=== PATIENT | female | born 1980 | race African-American/Black ===

== ENCOUNTER 2025-02-01 10:02 | Emergency (ER) | payer SELFPAY ==
--- NOTE | ~2025-02-01 | CT_ITS ---
CT HEAD NON-CONTRAST Clinical History: dizziness, headache, vertigo Comparison: None Technique: Unenhanced axial images skull base to vertex Coronal, sagittal reformats CT images acquired with automatic exposure control for dose reduction DLP: 605 mGy-cm Findings: Sulci, ventricles: Unremarkable. No intracerebral hemorrhage. No evidence acute territorial infarct. No mass effect, midline shift. Empty sella. Bony calvarium intact. Visualized paranasal sinuses: Clear. Mastoid air cells: Clear. IMPRESSION: 1. No acute intracranial findings. 2. 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 Reviewed, dictated and finalized at location [facility]. [employer] IMPRESSION: 1. No acute intracranial findings. 2. Empty pituitary fossa, usually caused by idiopathic intracranial hypertensi on.
[2025-02-01 10:04] VITALS: BP 113/84; PULSE 81; RESP 19; TEMP 36.6; O2SAT 98
--- NOTE | 2025-02-01 10:32 | ECG_ITS ---
Test Date: 2025-02-01 10:45:17 Measurements Intervals [place] Rate: 82 P: 56 MI: 157 QRS: 34 QRSD: 87 T: 35 QT: 380 QTc: 445 Interpretive Statements SINUS RHYTHM NONSPECIFIC T-WAVE ABNORMALITY BORDERLINE ECG No previous ECG available for comparison Electronically Signed On 02-01-2025 11:30:03 CORPORATE SECRETARY by Channing Arreola M.D.
--- NOTE | 2025-02-01 10:34 | ED_ITS ---
HPI - Recheck/Abnormal Lab/Rx General Chief Complaint: Recheck/Abnormal Lab/Rx Stated Complaint: Dizzy, SUÁREZ History of Present Illness HPI narrative: Patient is a 44 year old female who presents to the ER with feeling of dizziness, headache, and vertigo. She reports her primary care provider changed her blood pressure medication and she took it for the 1st time last night, then again this morning. Patient reports this morning she started feeling dizzy and ?unwell.She reports her mouth has been watering, she has an ongoing headache and experiences intermittent vertigo. Patient reports she was on amlodipine prior to this but her medication was changed yesterday. She denies any recent fevers, congestion, cough, or lower extremity edema. Patient denies any other medical history relevant to this ER visit. Related Data Allergies Allergy/AdvReac Type Severity Reaction Status Date / Time NSAIDS (Non-Steroidal AdvReac Severe Hypertensio Verified 02/01/25 10:10 Anti-Inflamma n Review of Systems 2 Review of Systems: All systems reviewed & are unremarkable except as noted in HPI and below Exam 2 Narrative: GENERAL: Well appearing, obese, non-toxic, in no acute distress. HEAD: Normocephalic, atraumatic. NECK: Supple. No adenopathy, no masses. RESPIRATORY: Airway patent, respirations nonlabored. Clear to auscultation bilaterally, no rales, rhonchi, wheezing. CARDIOVASCULAR: Regular rate and rhythm without murmurs, rubs, or gallops. Peripheral pulses 2+ and equal bilaterally. ABDOMINAL: Soft, nontender, nondistended, no hepatosplenomegaly. Normoactive BS. MUSCULOSKELETAL: Moves all extremities. Strength/ROM intact without gross deformities. SKIN: Warm, dry, normal color. No rashes. NEURO: A&O X3. Speech clear. Cranial nerves II-XII intact. No ataxic movements. PSYCHIATRIC: Appropriate mood and affect. Normal interaction. Course Vital Signs Vital signs: Vital Signs Temperature 36.6 C 02/01/25 10:04 Pulse Rate 81 02/01/25 10:04 Respiratory Rate 19 02/01/25 10:04 Blood Pressure 113/84 02/01/25 10:04 Pulse Oximetry 98 02/01/25 10:04 Oxygen Delivery Room Air 02/01/25 10:04 Temperature 36.6 C 02/01/25 10:04 Pulse Rate 88 11/21/25 12:44 Respiratory Rate 20 02/01/25 12:44 Blood Pressure 125/80 02/01/25 12:44 Pulse Oximetry 99 02/01/25 12:44 Oxygen Delivery Room Air 02/01/25 10:04 MDM - Recheck/Abnormal Lab/Rx MDM Narrative Medical decision making narrative: Patient is a 44 year old female who presents to the ER with feeling of dizziness, headache, and vertigo. She reports her primary care provider changed her blood pressure medication and she took it for the 1st time last night, then again this morning. Patient reports this morning she started feeling dizzy and ?unwell.She reports her mouth has been watering, she has an ongoing headache and experiences intermittent vertigo. Patient reports she was on amlodipine prior to this but her medication was changed yesterday. She denies any recent fevers, congestion, cough, or lower extremity edema. Patient denies any other medical history relevant to this ER visit. Labs Ordered: CBC, CMP, COVID/flu/RSV, UA Imaging Ordered: CT brain Medications Ordered: 1 L normal saline IV bolus, Benadryl IV, Reglan IV, Toradol IV Results: Pt's CT scan indicates No acute intracranial findings. 2. 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 Diagnosis: Side effect of medication, empty fossa, headache Consults: neurology (outpatient) Patient Education/Shared MDM: Results of lab work and imaging shared with patient. She endorses mild improvement of headache symptoms following medication administration, but will be given a dose of Toradol prior to discharge. Patient strongly advised to maintain hydration status upon discharge and follow-up with their PCP as soon as possible for further discussion of BP medication. She will be discharged home with no new prescriptions, but may take Tylenol and/or Ibuprofen for pain control. Strict return precautions provided. Patient verbalized understanding and is in agreement with plan. Vital signs stable at time of discharge. All questions answered. Differential Diagnosis Differential diagnosis: Likely other (headache, reaction to medication, empty sella, viral infection, dehydration, urinary tract infection, flu, COVID) Lab Data Attestation: I reviewed the patient's lab results. 02/01/25 10:47 02/01/25 10:47 Labs: Lab Results 02/01/25 Range/Units 10:47 WBC 6.0 (4.5-10.0) K/mm3 RBC 4.25 (4.2-5.4) M/mm3 Hgb 13.1 (12.0-15.0) g/dL Hct 39.0 (37.0-47.0) % MCV 91.8 (80-100) fl MCH 30.8 (26-34) pg MCHC 33.6 (32-36) g/dl RDW 13.3 (11.5-14.5) % Plt Count 170 (150-375) k/mm3 MPV 13.5 H (7.4-10.4) fl Immature Gran % (Auto) 0.3 (0-0.5) % Neut % (Auto) 74.6 H (45.5-73.1) % Lymph % (Auto) 19.2 (18.3-44.2) % [place] % (Auto) 5.0 (2.6-8.5) % Eos % (Auto) 0.2 (0-4.4) % Baso % (Auto) 0.7 (0.2-1.2) % Lymph # (Auto) 1.16 (0.9-3.2) K/mm3 [place] # (Auto) 0.3 (0.1-0.6) K/mm3 Eos # (Auto) 0.0 (0-0.3) K/mm3 Baso # (Auto) 0.0 (0.0-0.1) K/mm3 Abs Immat Gran (auto) 0.02 (0.00-0.031) K/mm3 Absolute Neuts (auto) 4.5 (1.3-6.7) K/mm3 Absolute Nucleated RBC 0.000 (0.0-0.012) K/mm3 Nucleated RBC % 0.0 (0.0-0.2) % % Immature Plt Fraction 15.8 H (0.9-11.2) % Sodium 137 (137-145) mmol/L Potassium 4.0 (3.4-5.0) mmol/L Chloride 109 H (98-107) mmol/L Carbon Dioxide 22 (22-30) mmol/L Anion Gap 6 (4-12) mmol/L BUN 14 (7-17) mg/dL Creatinine 0.81 (0.7-1.0) mg/dL Estim Creat Clear Calc 95 ml/min Estimated GFR > 60 (59 - ) Glucose 96 (65-110) mg/dL Calcium 8.8 (8.4-10.2) mg/dL Total Bilirubin 0.6 (0.2-1.3) mg/dL AST 21 (14-36) U/L ALT 25 (6-35) U/L Alkaline Phosphatase 77 (38-126) U/L Total Protein 7.5 (6.3-8.2) g/dL Albumin 4.2 (3.5-5.1) g/dL Urine Color Yellow (Yellow) Urine Appearance Clear (Clear) Urine pH 6.5 (5.0-9.0) Ur Specific [place] 1.006 (1.001-1.035) Urine Protein Trace (Negative) mg/dL Urine Glucose (UA) Negative (Negative) mg/dL Urine Ketones Negative (Negative) mg/dL Ur Blood (Man) Negative (Negative) Urine Nitrate Negative (Negative) Urine Bilirubin Negative (Negative) Urine Urobilinogen 0.2 (<2.0) mg/dL Leukocyte Esterase Rfl Negative (Negative) ERVIN/UL Urine RBC 0-2 (0-2) /hpf Urine WBC 0-5 (0-3) /hpf Ur Squamous Epith Cells Occasional (Few) /hpf Urine Bacteria None seen /hpf Urine Casts 0-2 Influenza A (RT-PCR) Negative (Negative) Influenza B (RT-PCR) Negative (Negative) RSV (RT-PCR) Negative (Negative) SARS-CoV-2 RNA (RT-PCR) Negative (Negative) Imaging Data Attestation: I personally reviewed and interpreted this imaging study as follows: Radiologist's impression: Impressions Head CT 02/01/25 10:56 IMPRESSION: 1. No acute intracranial findings. 2. 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 Discharge Plan Discharge Clinical Impression: Medication side effects, Headache, Empty sella Patient Disposition: Home Condition: Stable Instructions: Antibiotic Form, Acute Headache (ED) Additional Instructions: Please return to the ER with any worsening symptoms. Follow-up with primary care provider as soon as possible for further discussion of blood pressure medication. You may take Tylenol and/or ibuprofen for pain control. Please remember to drink lots of water. Patient Language: Amharic Follow-up/Referrals: Real,Efren Garcia MD [Primary Care Provider, Unknown] Stand Alone Forms: Work/School Release IP Time of Disposition: 14:25
[2025-02-01] MEDS: SODIUM CHLORIDE 0.9% IV 1,000 ML 999 ML IV CONT (10:51)
[2025-02-01 10:56] LABS: Hematocrit 39.0 % (37.0-47.0); Hemoglobin 13.1 g/dL (12.0-15.0); Immature Granulocyte Percent A 0.3 % (0-0.5); Immature Platelet Fraction Pct 15.8 % (0.9-11.2); Lymphocytes Absolute Auto 1.16 K/mm3 (0.9-3.2); Mean Corpuscular HGB Conc 33.6 g/dl (32-36); Mean Corpuscular Hemoglobin 30.8 pg (26-34); Mean Corpuscular Volume 91.8 fl (80-100); Nucleated Red Blood Cells Absolute Auto 0.000 K/mm3 (0.0-0.012); Nucleated Red Blood Cells Perc 0.0 % (0.0-0.2); Platelet Count Result 170 k/mm3 (150-375); Red Blood Count 4.25 M/mm3 (4.2-5.4); White Blood Count 6.0 K/mm3 (4.5-10.0)
[2025-02-01 11:05] LABS: Add Urine Microscopic? YES; Appearance Urine Clear (Clear); Glucose Urine UA Negative (Negative); Leukocyte Esterase Ur Negative LEU/UL (Negative); Nitrate Urine Negative (Negative); Non Pathogenic Casts 0-2; Specific Grav Ur 1.006 (1.001-1.035)
[2025-02-01 11:06] LABS: Alanine Aminotransferase 25 U/L (6-35); Albumin Level 4.2 g/dL (3.5-5.1); Alkaline Phosphatase 77 U/L (38-126); Anion Gap 6 mmol/L (4-12); Aspartate Amino Transferase 21 U/L (14-36); Bilirubin,Total 0.6 mg/dL (0.2-1.3); Blood Urea Nitrogen 14 mg/dL (7-17); Calcium 8.8 mg/dL (8.4-10.2); Carbon Dioxide 22 mmol/L (22-30); Chloride 109 mmol/L (98-107); Estimated CRCL calculation 95 ml/min; Estimated Glomerular Filt Rate > 60; Glucose 96 mg/dL (65-110); Potassium 4.0 mmol/L (3.4-5.0); Sodium 137 mmol/L (137-145); Total Protein 7.5 g/dL (6.3-8.2)
--- OUTSIDE RECORDS SUMMARY | 2025-02-01 11:12 | XMS_ITS | Clinical Summary ---
Author Organization [facility] Address [address], [facility] [address] [place] [address] Phone Care Team Providers Care Slab Puller Name Role Phone Channing Hanks MD Unavailable Provider, None Primary Care Provider Unavailabl e Allergies Active Allergy Reactions Criticality Noted Date Comments Ibuprofen Other (see Comments) 08/16/2021 hypertension Naproxen Other (see Comments) 08/16/2021 hypertension Medications citalopram (CELEXA) 20 MG Tablet Take 20 mg by mouth daily. 3 5 Active HYDROcodone-sheila taminophen (NORCO) 5-325 MG Tablet Take 1-2 Tabs by mouth every 6 hours as needed for Pain. 40 Tab 0 6 Active docusate sodium (COLACE) 100 MG Capsule Take 1 Cap by mouth 2 times daily as needed for Constipation. 180 Cap 3 6 Active HYDROcodone-sheila taminophen (NORCO) 5-325 MG Tablet Take 1-2 Tabs by mouth every 4 hours as needed for Pain. 15 Tab 0 6 Active Additional Information Patient not taking.Reason: Not available (only had for knee), Reported on 07/10/2015 ketorolac (TORADOL) 10 MG Tablet Take 1 Tab by mouth every 6 hours as needed for Pain. 20 Tab 0 7 Active fluticasone (FLONASE) 50 MCG/ACT Suspension 1-2 Sprays by Nasal route 2 times daily. Use in each nostril as directed. 1 Bottle 0 7 Active naproxen (NAPROSYN) 500 MG Tablet Take 1 Tab by mouth 2 times daily (with meals). 60 Tab 0 7 Active traMADol (ULTRAM) 50 MG Tablet Take 1 Tab by mouth every 6 hours as needed for Pain. 15 Tab 0 7 Active amLODIPine (NORVASC) 10 MG Tablet Take 1 Tab by mouth daily. 14 Tab 0 7 Active hydroCHLOROthia zide 25 MG Tablet Take 1 Tab by mouth daily. 14 Tab 0 7 Active lisinopril (PRINIVIL, ZESTRIL) 40 MG TabletIndicatio ns:Doctor doubled dose Take 1 Tab by mouth daily. Indications: Doctor doubled dose 14 Tab 0 7 Active Active Problems No known active problems Family History Medical History Relation Name Comments Glaucoma Father Hypertension Father Hypertension Maternal Aunt 1 Hypertension Maternal Aunt 2 Hypertension Maternal Aunt 3 Hypertension Maternal Uncle 1 Hypertension Maternal Uncle 2 Hypertension Maternal Uncle 3 Hypertension Maternal Uncle 4 Hypertension Maternal Uncle 5 Depression Mother Hypertension Mother Hypertension Paternal Aunt Hypertension Sister 1 Hypertension Sister 2 Relation Name Status Comments Father Alive Maternal Aunt 1 Maternal Aunt 2 Maternal Aunt 3 Maternal Uncle 1 Maternal Uncle 2 Maternal Uncle 3 Maternal Uncle 4 Maternal Uncle 5 Mother Alive Paternal Aunt Sister 1 Sister 2 Social History Tobacco Use Types Packs/Day Years Used Date Smoking Tobacco: Some Days Cigarettes 0.3 15 Smokeless Tobacco: Never Tobacco Cessation:Ready to Q uit: Yes Comments:Currently trying to quit. Alcohol Use Standard Drinks/Week Comments Yes 0 (1 standard drink = 0.6 oz pur e alcohol) occassionally Comments No Sex and Gender Information Value Date Recorded Sex Assigned at Not on file Legal Sex Female 11:31 PM CDT Gender Identity Not on file Sexual Orientation Not on file Last Filed Vital Signs Vital Sign Reading Time Taken Comments Blood Pressure 162/101 08/16/2021 10:54 AM CDT Pulse 100 08/16/2021 10:52 AM CDT Temperature 36.9 C (98.4 F) 08/16/2021 10:52 AM CDT Respiratory Rate 16 08/16/2021 10:52 AM CDT Oxygen Saturation 99% 08/16/2021 10:52 AM CDT Inhaled Oxygen Concentration - - Weight 106.6 kg (235 lb) 08/16/2021 10:52 AM CDT Height 165.1 cm (5' 5) 08/16/2021 10:52 AM CDT Body Mass Index 39.11 08/16/2021 10:52 AM CDT Plan of Treatment Health Maintenance Due Date Last Done Comments Hepatitis C Virus (HCV) Screening 1981 Mammogram 1981 TdaP Immunization 1981 Varicella Immunization (1 of 2 - 13+ 2-dose series) 1994 Hepatitis B Immunization (1 of 3 - 19+ 3-dose series) 2000 Human Papillomavirus (HPV) Immunization (1 - 3-dose SCDM series) 2008 Discussion re Starting/Frequ ency of Mammograms 2021 Influenza Immunization (#1) 2024 SARS-COV-2 Immunization ( - season) 2024 Respiratory Syncytial Virus (RSV) Immunization (Adult) (1 - 1-dose 75+ series) 2056 Meningococcal Immunization (ACWY) Aged Out No longer eligible based on patient's age to complete this topic Pneumococcal Immunization Combined Aged Out No longer eligible based on patient's age to complete this topic Rotavirus Immunization Aged Out No lo nger eligible based on patient's age to complete this topic Insurance [place]ICAID [place] Care Teams Slab Puller Relationship Specialty Start Date End Date Provider, None [place] PCP - General 08/16/21 Channing Hanks MD General Surgery 02/20/15
--- OUTSIDE RECORDS SUMMARY | 2025-02-01 11:12 | XMS_ITS | Clinical Summary ---
Author Organization [facility] Address [address] [place] [address] Care Team Providers Care Supervisor Production Department Name Role Phone Dru Wilder MD Primary Care Provider [phone] Source Comments [facility],non-owned Affiliates and Associated Physician Practices is amultiple site organization consisting of ambulatory clinics and hospital sitesin [place], [place], [place] and [place]. This disclosure is being madepursuant to the Care Everywhere program and may not contain all information available regarding this patient. Last updated 17.[facility] Allergies No known active allergies Medications * Be aware that medications may not be up to date on this document. Alwaysverify current medications with the patient. amLODIPine (NORVASC) 10 MG tablet TK 1 T PO QD 08/09/2019 Active REXULTI 2 MG tablet TK 1 T PO QD 08/13/2019 Active fluticasone propionate (FLONASE) 50 MCG/ACT nasal spray SHAKE LQ AND U 1 SPR IEN QD PRN 08/09/2019 Active hydroCHLOROthiaz rachid (HYDRODIURIL) 25 MG tablet TK 1 T PO QD UTD 08/09/2019 Active ibuprofen (MOTRIN) 600 MG tablet TK 1 T PO Q 6 H FEV OR PAIN 01/24/2019 Active traZODone (DESYREL) 100 MG tablet TK 1 T PO HS 12/13/2018 Active venlafaxine (EFFEXOR) 37.5 MG tablet TK 1 T PO BID 12/13/2018 Active metoprolol succinate XL 24hr (TOPROL XL) 100 MG tablet TK 1 T PO QD 08/09/2019 Active Active Problems No known active problems Social History Tobacco Use Types Packs/Day Years Used Date Smoking Tobacco: Every Day Cigarettes 0.5 17 Smokeless Tobacco: Never Comments Unknown Sex and Gender Information Value Date Recorded Sex Assigned at Not on file Legal Sex Female 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 LAP BONDER Gender Identity Not on file Sexual Orientation Not on file Last Filed Vital Signs Vital Sign Reading Time Taken Comments Blood Pressure - - Pulse - - Temperature - - Respiratory Rate - - Oxygen Saturation - - Inhaled Oxygen Concentration - - Weight 104.3 kg (230 lb) 08/30/2019 9:01 AM CDT Height 165.1 cm (5' 5) 08/30/2019 9:01 AM CDT Body Mass Index 38.27 08/30/2019 9:01 AM CDT Plan of Treatment Health Maintenance Due Date Last Done Comments LIPID TESTING 1981 MAMMOGRAM 1981 HIV SCREENING 1996 HEPATITIS C SCREENING 09/21/1999 DTAP/TDAP/TD VACCINES (1 - Tdap) 2000 HEPATITIS B VACCINE (1 of 3 - 19+ 3-dose series) 2000 PAP SMEAR 2002 HPV VACCINE (1 - 3-dose SCDM series) 2008 Cervical Cancer Screening 09/26/2011 PAP with HPV 09/26/2011 DEPRESSION SCREENING 03/14/2024 COVID-19 VACCINE (1 - 2024-2 6 season) 2024 INFLUENZA VACCINE (#1) 2024 ZOSTER VACCINE (1 of 2) 09/26/2031 HIB VACCINE Aged Out No longer eligi ble based on patient's age to complete this topic MENINGOCOCCAL (Group B) VACC INE SHARED DECISION-MAKING Aged Out No longer eligibl e based on patient's age to complete this topic MENINGOCOCCAL GROUPS A/C/Y/W VACCINE Aged Out No longer eligible b ased on patient's age to complete this topic PNEUMOCOCCAL VACCINE Aged Out No long er eligible based on patient's age to complete this topic Insurance [facility] Care Teams Supervisor Production Department Relationship Specialty Start Date End Date Dru Wilder MD [address] [place] [address] [address] [place] [address] PCP - General 09/23/20
--- OUTSIDE RECORDS SUMMARY | 2025-02-01 11:12 | XMS_ITS | Data Portability ---
Author Organization [facility] Address [address] [address] Care Team Providers Care Youth Career Specialist Name Role Phone OSMIN BRANCH Primary Care Provider Assessment Encounter Date Assessment Date Assessment LastModified by Organization Details LastModified Time 03/29/2022 03/29/2022 Annual gynecological exam performed. Patient will come back in a year unless there are new symptoms. Not available 03/29/2022 12:33:54 Plan of Treatment Reminders Order Date Submit Date Provider Last Modified By Organization Details Last Modified Time Details Appointments None recorded . Lab None recorded . Referral None recorded . Procedures None recorded . Surgeries None recorded . Imaging None recorded . Medication Orders Marion 5 mg-325 mg tablet 020 020 INTERFACE [id number], [address] [facility], [place], [place], [id number], 0 12:05:24 Patient TargetsNo targets recorded. Patient InstructionsNo instructions recorded. Reason for Referral None Reported. Results Created Date Observation Date Name Description Value Unit Range Abnormal Flag Note LastModifiedBy Organization Detail LastModifiedTime 05/01/19 21 05/01/2020 , hamlet fraser md interpretati on Not Available [facility] [address], [place], [address], 10/29/2019 16:34:27 03/29/19 23 03/29/2022 IMAGE GUIDE D PAP AND HPV REGAR DLESS image guided Pap, HPV regardless of Pap result SEE RESULT S BELOW CASE REPOR T: Cytol ogy Gynec ologi rula Repor t Case: [id number] Autho meche morton Provi sam: Arcelia Gonzalez MD Colle cted: 03/29 1426 Order ing Locat ion: [place] [facility] Recei radha: 03/30 0728 First Scree n: Rita Tavares ica Rescr een: Daljit Oliveira Speci men: Scree tess Pap - Image d, Cervi x STATE MENT OF ADEQU ACY: Satis facto ry for evalu ation Trans forma tion zone compo nent absen t. The absen ce of an endoc ervic al compo nent was confi rmed by an addit ional melita middleton. FINAL DIAGN OSIS: Negat bryce for Intra epith elial Lesio n or Leo sahni (NIL) . Shift in glenn sugge stive of bacte rial vagin osis. Elect clay roa niranjan d by Daljit Oliveira on 2022 at 10:59 AM ----- ----- ----- ----- ----- ----- ----- ----- ----- ----- ----- ----- ----- ----- ----- ----- ----- ---- HPV RESUL TS: HPV mRNA E6/E7 : No HPV mRNA Detec yamilet NOTE: This high risk HPV mRNA assay detec ts fourt een high- risk HPV types (16, 18, 31, 33, 35, 39, 45, 51, 52, 56, 58, 59, 66, 68) witho ut diffe renti ation . COMME NT: Note: This speci men was revie wed by a Cytot echno logis t and/o r Patho logis t (as indic ated in this repor t) after evalu ation using the Thinp rep Imagi ng Syste m. CLINI RULA INFOR MATIO N: Menst rual Statu s: LMP (if appli cable ): Clini rula Histo ry/Pr eviou s Pap: Type of Neopl prosper (if appli cable ): Signi fican t Clini rula Findi ngs: Other Histo ry: Hormo snow (if appli cable ): PAP EDUCA KESHA L NOTE: The Pap Test is a scree tess test with an inher ent false negat byrce rate. Liqui d-bas ed sampl ing may decre ase, but will not elimi jose luis, false negat bryce resul ts. A negat bryce resul t does not precl ude the prese nce and/o r devel opmen t of disea se, since the prese nce of abnor mal cells in the sampl e depen ds on the locat ion of the lesio n and sampl ing techn ique. Juan nued regul ar scree tess is the best metho d of cance r preve ntion . If repor yamilet cytol ogic findi ng do not corre late with physi rula and/o r histo rical findi ngs, furth er inves tigat ion is recom scar d, as clini marcello warra nted. Not Available [facility] (Lab) [address], [place], [address], 04/01/2022 12:02:06 Result Notes None recorded. Procedures Surgical History Date Name Laterality Status Provider Name and Address Organization Details Recorded Time 03/24/19 21 I&D completed Topher Gonzalez MD [address], [place], [address], [facility] 03/24/2020 10:30:46 11/20/19 20 TOTAL LAPAROSCOPIC HYSTERECTOMY (SURG) completed Elvin Taylor [facility] 07/31/2020 11:36:12 10/15/19 20 Date of Last Pap Smear completed Emiliana Zambrano [facility] 10/17/2020 09:37:55 Imaging Results None recorded. Procedure Notes None recorded. Medical Equipment None Reported. Allergies Allergen ID Allergen Name Allergen Category Reaction Reaction Severity Criticality Documentation Date Start Date Code Code System Note Provider Name and Address Organization Details Recorded Time 1547 POLLEN EXTRACTS environme nt,medica tion Not available Not available Not available 10/15/2019 42715 6 RxNorm Emiliana Zambrano [facility] 0 10:40:15 1548 house dust allergeni c extract environme nt,medica tion Not available Not available Not available 10/15/2019 08651 9 RxNorm Emiliana Zambrano [facility] 0 10:40:19 95915 ibuprofen medicatio n Not available Not available Not available 03/29/2022 5640 RxNorm Emiliana Zambrano [facility] 3 12:35:31 Medications Name Sig Start Date Stop Date Status Note LastModified by Organization Details LastModified Time atorvastati n 40 mg tablet TAKE 1 TABLET BY MOUTH EVERY DAY active Not Available Not Available No t Available metformin 500 mg tablet TAKE 1 TABLET BY MOUTH EVERY DAY active Not Available Not Available No t Available carvedilol 25 mg tablet active Not Available Not Available Not Available clonidine HCl 0.1 mg tablet TAKE 1 TABLET BY MOUTH EVERY DAY NEEDED FOR HIGH BLOOD PRESSURE active Not Available Not Available No t Available azithromyci n 250 mg tablet 03/29 completed Not Available Not Available Not Available aspirin 325 mg tablet TAKE 1 TABLET BY MOUTH TWICE A DAY active Not Available Not Available No t Available Lidocaine Viscous 2 % mucosal solution SWISH AND SPIT 5 ML BY MOUTH EVERY 2 HOURS NEEDED FOR IRRITATIO N FOR 7 DAYS active Not Available Not Available No t Available hydrocodone 5 mg-acetamin ophen 325 mg tablet TAKE 1 TABLET BY MOUTH EVERY 6 HOURS NEEDED active Not Available Not Available No t Available spironolact one 25 mg-hydrochl orothiazide 25 mg tablet TAKE 1 TABLET BY MOUTH DAILY active Not Available Not Available No t Available sertraline 100 mg tablet TAKE 1 TABLET BY MOUTH EVERY DAY active Not Available Not Available No t Available chlorthalid one 25 mg tablet TAKE 1 TABLET BY MOUTH EVERY DAY active Not Available Not Available No t Available chlorthalid one 50 mg tablet TAKE 1 TABLET BY MOUTH EVERY DAY active Not Available Not Available No t Available sulfamethox azole 800 mg-trimetho prim 160 mg tablet TAKE 1 TABLET BY MOUTH TWICE DAILY FOR 10 DAYS active Not Available Not Available No t Available hydrocodone 10 mg-acetamin ophen 325 mg tablet TAKE 1 TABLET BY MOUTH EVERY 12 HOURS NEEDED active Not Available Not Available No t Available tramadol 50 mg tablet 10/14 completed Not Available Not Available Not Available oxycodone-a cetaminophe n 5 mg-325 mg tablet TAKE 1 TABLET BY MOUTH EVERY 6 HOURS NEEDED FOR PAIN active Not Available Not Available No t Available methocarbam ol 750 mg tablet TAKE 1 TABLET BY MOUTH EVERY 8 HOURS NEEDED FOR MUSCLE SPASM active Not Available Not Available No t Available nifedipine ER 60 mg tablet,exte nded release 24 hr TAKE 1 TABLET BY MOUTH EVERY DAY active Not Available Not Available No t Available trazodone 100 mg tablet TAKE 1 TABLET BY MOUTH AT BEDTIME NEEDED active Not Available Not Available No t Available nifedipine ER 90 mg tablet,exte nded release 24 hr TAKE 1 TABLET BY MOUTH EVERY DAY active Not Available Not Available No t Available amlodipine 10 mg tablet TAKE 1 TABLET BY MOUTH EVERY DAY active Not Available Not Available No t Available cephalexin 500 mg capsule 03/29 completed Not Available Not Available Not Available hydralazine 100 mg tablet TAKE 1 TABLET BY MOUTH THREE TIMES DAILY active Not Available Not Available No t Available lisinopril 10 mg tablet active Not Available Not Available Not Available lidocaine 5 % topical patch APPLY NEW PATCH TO SKIN DAILY NEEDED FOR BACK PAIN active Not Available Not Available No t Available minoxidil 10 mg tablet TAKE 1 TABLET BY MOUTH EVERY DAY active Not Available Not Available No t Available lisinopril 30 mg tablet TAKE 1 TABLET BY MOUTH EVERY DAY IN THE MORNING active Not Available Not Available No t Available montelukast 10 mg tablet TAKE 1 TABLET BY MOUTH DAILY active Not Available Not Available No t Available hydralazine 50 mg tablet TAKE 2 TABLETS BY MOUTH THREE TIMES DAILY active Not Available Not Available No t Available ergocalcife rol (vitamin D2) 1,250 mcg (50,000 unit) capsule TAKE 1 CAPSULE BY MOUTH WEEKLY active Not Available Not Available No t Available ibuprofen 600 mg tablet active Not Available Not Available Not Available oxycodone-a cetaminophe n 7.5 mg-325 mg tablet TAKE 1 TABLET BY MOUTH EVERY 4 HOURS NEEDED FOR PAIN active Not Available Not Available No t Available albuterol sulfate HFA 90 mcg/actuati on aerosol inhaler INHALE 1 PUFF BY MOUTH EVERY 4 TO 6 HOURS NEEDED FOR SHORTNESS OF BREATH OR WHEEZING active Not Available Not Available No t Available nifedipine ER 60 mg tablet,exte nded release TAKE 1 TABLET BY MOUTH EVERY DAY active Not Available Not Available No t Available topiramate 100 mg tablet TAKE 1 TABLET BY MOUTH TWICE DAILY active Not Available Not Available No t Available losartan 100 mg tablet TAKE 1 TABLET BY MOUTH EVERY DAY active Not Available Not Available No t Available sertraline 50 mg tablet TAKE 1 TABLET BY MOUTH EVERY DAY active Not Available Not Available No t Available doxycycline hyclate 100 mg tablet 03/29 completed Not Available Not Available Not Available naproxen 500 mg tablet TAKE 1 TABLET BY MOUTH TWICE DAILY NEEDED FOR PAIN active Not Available Not Available No t Available spironolact one 50 mg tablet TAKE 1 TABLET BY MOUTH EVERY DAY active Not Available Not Available No t Available amoxicillin 875 mg-potassiu m clavulanate 125 mg tablet TAKE 1 TABLET BY MOUTH TWICE DAILY FOR 10 DAYS 03/29 completed Not Available Not Available Not Available topiramate 50 mg tablet TAKE 1 TABLET BY MOUTH EVERY DAY active Not Available Not Available No t Available citalopram active Not Available Not Av ailable Not Available ibuprofen 11/16 completed Not Available Not Available Not Available trazodone active Not Available Not Nidhi ilable Not Available metoprolol succinate active Not Available Not Available No t Available metformin active Not Available Not Nidhi ilable Not Available Symbicort 160 mcg-4.5 mcg/actuati on HFA aerosol inhaler INHALE 2 PUFFS BY MOUTH TWICE DAILY active Not Available Not Available No t Available fluticasone furoate active Not Available Not Available Not Available FeroSul 325 mg (65 mg iron) tablet TAKE 1 TABLET BY MOUTH EVERY DAY active Not Available Not Available No t Available Gavilyte-C 240 gram-22.72 gram-6.72 gram-5.84 gram oral solution 10/14 completed Not Available Not Available Not Available Stimulant Laxative Plus 8.6 mg-50 mg tablet TAKE 2 TABLETS BY MOUTH TWICE DAILY active Not Available Not Available No t Available Rexulti active Not Available Not Avail able Not Available naloxone 4 mg/actuatio n nasal spray ADMINISTE R 1 SPRAY INTO ONE NOSTRIL NEEDED FOR OPIOID REVERSAL. CALL 911. REPEAT EVERY 3 MINUTES NEEDED active Not Available Not Available No t Available Vitals Date Recorded Body height Body mass index (BMI) Body weight Systolic And Diastolic Provider Name and Address Organization Details Last Updated DateTime 03/24/2020 165.1 cm 42.8 kg/m2 741066.24 g 141/93 mm[Hg] Emiliana Zambrano [facility] 03/24/2020 09:58:23 Date Recorded Body height Body mass index (BMI) Body weight Systolic And Diastolic Systolic And Diastolic Provider Name and Address Organization Details Last Updated DateTime 03/29/2022 165.1 cm 42.4 kg/m2 485498.0 5 g 156/105 mm[Hg] 152/114 mm[Hg] Emiliana [facility] 12:34:26 Date Recorded Body height Body mass index (BMI) Body weight Systolic And Diastolic Systolic And Diastolic Systolic And Diastolic Provider Name and Address Organization Details Last Updated DateTime 165.1 cm 42.9 kg/m2 797273. 83 g 246/197 mm[Hg] 190/138 mm[Hg] 216/132 mm[Hg] Bhavana Brooke [facility] 4 14:31:33 Date Recorded Body height Body mass index (BMI) Body weight Systolic And Diastolic Provider Name and Address Organization Details Last Updated DateTime 02/22/2020 165.1 cm 40.3 kg/m2 851695.35 g 158/112 mm[Hg] Emiliana [facility] 02/22/2020 11:25:31 Social History Question Answer Notes LastModified by Organizat ion Details LastModified Time Tobacco Smoking Status Never Smoker Emiliana Zambrano [facility] 03/29/2022 12:34:40 How Many Years Have You Consumed Alcohol? 20 Information not available 03/29/2022 Are You Blind Or Do You Have Difficulty Seeing? No Information n ot available 03/29/2022 What Is Your Level Of Caffeine Consumption? None Information not available 03/29/2022 How Much Tobacco Do You Chew? None Information not available 03/29/2022 In The 14 Days Before Symptom Onset, Have You Had Close Contact With A Laboratory-confirm ed COVID-19 While That Case Was Ill? No Information n ot available 03/29/2022 In The 14 Days Before Symptom Onset, Have You Had Close Contact With A Person Who Is Under Investigation For COVID-19 While That Person Was Ill? No Information not available 03/29/2022 Have You Been To An Area Known To Be High Risk For COVID-19? No Information not available 03/29/2022 Are You Deaf Or Do You Have Serious Difficulty Hearing? No Information not available 03/29/2022 What Type Of Diet Are You Following? DIABETIC Information n ot available 03/29/2022 What Is The Highest Grade Or Level Of School You Have Completed Or The Highest Degree You Have Received? LC34052-9 Information not available 03/29/2022 Are There Any Guns Present In Your Home? No Information not available 03/29/2022 Do You Use Protection During Sex? No Information not available 03/29/2022 Do You Use Your Seat Belt Or Car Seat Routinely? Yes Information not available 03/29/2022 Do You Have Smoke And Carbon Monoxide Detectors In Your Home? Yes Information not available 03/29/2022 At What Age Did You Start Smoking Tobacco? 14 Information not available 03/29/2022 How Much Tobacco Do You Smoke? No Information not available 03/29/2022 Do You Use Sunscreen Routinely? No Information not available 03/29/2022 How Many Years Have You Smoked Tobacco? 20 Information not available 03/29/2022 Have You Used IV Drugs? No Information not available 03/29/2022 Sex: Unknown Functional Status Question Answer Note LastModified by Organizat ion Details LastModified Time Do you use any illicit or recreational drugs? Yes Information not available 03/29/2022 What is your level of alcohol consumption? Occasional Information not available 03/29/2022 Are you able to walk independently without assistance or assistive devices? YESWOREST Information not available 03/29/2022 What is your occupation? Unemployed Information not available 03/29/2022 What is your exercise level? Moderate Information not available 03/29/2022 Mental Status Question Answer Note LastModified by Organization D etails LastModified Time Do you feel stressed (tense, restless, nervous, or anxious, or unable to sleep at night)? [id number] Information not available 03/29/2022 Family History Relationship Description Onset Age of this Age Resolved Age Notes LastModified by Organization Details LastModified Time Mother Hyperlipidem ia Not available 2024 09:43:11 Mother Hypertensive disorder Not available 2019 11:25:43 Father Hyperlipidem ia [email or web address] Not available 2024 09:43:11 Father Hypertensive disorder Not available 2019 11:25:43 Maternal Uncle Hypertensive disorder Not available 2019 11:25:43 Paternal Aunt Hypertensive disorder Not available 2019 11:25:43 Sister Asthma Not available 02/22/2020 11:25:43 Sister Anemia Not available 02/22/2020 11:25:43 Maternal Aunt Hypertensive disorder Not available 2020 09:59:09 Medical History Condition Response Diabetes Y Anemia Y High Cholesterol Y Depression/ depression Y Cancer Y Thyroid Problems Y Hypertension Y Gynecological History Statement/Question Response Abnormal Pap Y Date of LMP 09/27/2019 N HPV Vaccine N Current Control Method Hysterectom y 14 Age at First Child 21 Sexually Active? Y Date of Last Pap Smear 10/15/2019 Sexual Problems? N LMP Unknown N Obstetrics History GPAL:G 4 P 0 0 1 3 Type Value Spontaneous 1 Living 3 Total 4 Past Encounters Encounter ID Performer Location Encounter Start Date Encounter Closed Date Diagnosis/Indication Diagnosis SNOMED-CT Code Diagnosis ICD10 Code Diagnosis IMO Codes Diagnosis Note [id number] Topher Gonzalez MD [place] [address] [address] 10/15/2019 10:31:34 10/15/2019 12:18:20 Gynecologic examination [id number] Z01.419 This patient is here for her annual exam. A thorough history was taken. A physical exam was performed. Age appropriat e routine health screening was ordered, performed, and discussed. Recommende d testing was ordered. She was asked to follow up in one year. She will be informed of any test results. The patient has severe menorrhagi a -to will initiate evaluation with pelvic ultrasound . She has had labs. Not certain if they are available. We will consider getting onset a labs. Menorrhagia [id number] N9 2.0 [id number] Topher Gonzalez MD [place] [address] [address] 10/29/2019 15:46:14 10/29/2019 16:50:56 Menorrhagia 244028394 N92.0 [id number] Topher Gonzalez MD [place] [address] [address] 10/29/2019 15:46:29 10/31/2019 21:25:32 Menorrhagia 641281646 N92.0 Dysmenorrhea 276878682 N 94.6 Uterine leiomyoma 295044 05 D25.9 this patient is a -year-old female presents for severe menorrhagi a, abnormal uterine bleeding, and severe dysmenorrh ea. She has longstandi ng symptoms of this nature. The symptoms are debilitati ng. They affect her activities of daily living. They affect her life at work. the patient became tearful when she described how long she has been suffering from pain and bleeding.S he had a pelvic ultrasound . The patient has multiple large uterine fibroids.Jitendra staton discussed all of her treatment options. We discussed medical options. We discussed procedure options. Many of the medical treatment options are contraindi cated in the patient. We agreed the total laparoscop ic hysterecto my be the treatment of choice in this patient. Will proceed with arranging the surgery. we spoke for 25 minutes today. More than 50% of that was counseling . We discussed uterine fibroids, etiology, natural history, treatment. We discussed these treatment option in detail. We discussed hysterecto my with that was decided upon. We discussed that in detail. We discussed risk to some degree. She will return for the informed consent process and a more thorough discussion of risks. We will schedule the total laparoscop ic hysterecto my. [id number] Topher Gonzalez MD [place] [address] [address] 11/13/2019 14:51:41 11/13/2019 22:32:02 [id number] Topher Gonzalez MD [place] [address] [address] 11/17/2019 11:57:27 11/20/2019 09:16:25 Menorrhagia 858040048 N92.0 Dysmenorrhea 607682225 N 94.6 this patient is a 39-year-ol d female with severe menorrhagi a and dysmenorrh ea. We have agreed to perform total laparoscop ic hysterecto my. She understand s risks, benefits, and alternativ es. She has completed the informed consent process is ready to proceed. [id number] Topher Gonzalez MD [place] [address] [address] 11/22/2019 08:49:53 11/22/2019 08:52:15 [id number] Topher Gonzalez MD [place] [address] [address] 11/27/2019 14:49:06 11/27/2019 15:41:57 Postoperative care 705009442 Z48.89 this patient is a 39-year-ol d female presents forpostopf ollow-up. She is 1 weekpostop from a total laparoscop ic hysterecto my. She also had extensive adhesion lysis. She is doing very well. She has no complaints . Her incisions are clean dry and intact. She will follow up as needed. We discussed her pathology report. [id number] Topher Gonzalez MD [place] [address] [address] 02/22/2020 10:46:36 02/22/2020 12:14:00 Dyspareunia 38891296 N94.10 Postcoital bleeding 4888 0000 N93.0 This patient is a 39-year-ol d female. She is 3 monthspost opfrom a total laparoscop ic hysterecto my. She had a BSO as well. She is having pain with intercours e. She also notes some spotting after intercours e. She was examined. There was an area of granulatio n tissue and possible or ulcers the midline of the incision. There is also a suture present. We agreed to 1 month of vaginal estrogen.I will see her in 1 month. She also needs pain management . [id number] Topher Gonzalez MD [place] [address],[place] [address] 03/24/2020 09:46:10 03/24/2020 10:33:12 Abscess of vulva 34066125 N76.4 Postoperat bryce complication 269654952 T81.9XXS This patient is a 39-year-ol d female presents for follow-up on postoperat bryce complicati on. She had some postcoital bleeding and some granulatio n tissue formed on the vaginal cuff. She is examined today and vaginal cuff is healed. She has no pain. She has no postcoital bleeding. this issue has been resolved. Does report A pubic abscess. There is a 2 cm subcutaneo us abscess with flocculenc e. It is tender. It was incised and drained. She will follow-up as needed. [id number] Topher Gonzalez MD [place] [address],[facility] [place] [address] 03/29/2022 12:02:52 03/29/2022 13:09:24 Gynecologic examination 44179830 Z01.419 This patient is here for her annual exam. A thorough history was taken. A physical exam was performed. Age appropriat e routine health screening was ordered, performed, and discussed. Recommende d testing was ordered. She was asked to follow up in one year. She will be informed of any test results. mammogram order [id number] ELTON Sandoval [place] [address],[facility] [place] [address] 05/17/2023 13:35:51 05/17/2023 14:37:18 Left without being seen [id number] 9102 Z53.21 Pt checked in for appointmen t, she is here with her sisterBP severely elevated. Discussed risk of BP this severely elevated. Advised ED immediatel y, declined EMS transport. Her sister agreed to drive her immediatel y to [facility].W WE not performed today [id number] ELTON Sandoval [place] [address] [address] 11/26/2024 09:42:41 11/27/2024 16:41:27 Left before being seen [id number] 105 Z53.21 [id number] Health Concerns Section Related Observation LastModified by Organization Detai ls LastModified Time None Recorded Concern Status LastModified by Organization Details LastModified Time None Recorded Advance Directives Directive None Recorded Payers Insurance Date Sequence Insurance Name Policy Number Policy Schmidt Covered Member ID Schmidt Member ID Guarantor Name 11/25/2024 1 [facility] (MEDICAID HMO) [id number] Hoa Drake [id number] Ottocourtney Drake Notes Date Note Type Note Provider Name and Address Organization Details Recorded Time 02/22/20 20 text/htm l This patient is a 39-year-old female. She is 3 months postop from a total laparoscopic hysterectomy. She had a BSO as well. She is having pain with intercourse. She also notes some spotting after intercourse. She was examined. There was an area of granulation tissue and possible or ulcers the midline of the incision. There is also a suture present. We agreed to 1 month of vaginal estrogen. I will see her in 1 month. She also needs pain management. Topher Gonzalez MD [address], [place], [address], [facility] 02/22/2020 12:06:05 03/24/19 21 text/htm l This patient is a 39-year-old female presents for follow-up on postoperative complication. She had some postcoital bleeding and some granulation tissue formed on the vaginal cuff. She is examined today and vaginal cuff is healed. She has no pain. She has no postcoital bleeding. this issue has been resolved. Does report A pubic abscess. There is a 2 cm subcutaneous abscess with flocculence. It is tender. It was incised and drained. She will follow-up as needed. Topher Gonzalez MD [address], [place], [address], [facility] 03/24/2020 10:32:04 03/29/19 23 text/htm l Annual GYNReported by PatientHistoryFor history, patient reportsno gynecologic complaints.Genitourinary symptomsFor urinary symptoms, patient reportsno hematuriaandno incontinence. For vulva, patient reportsno genital lesion. For vagina, patient reportsnormal vaginal discharge. For menstrual cycle, (s/p hysterectomy).Breast symptomsFor breast, patient reportsno breast painandno breast lump.Endocrine symptomsFor sexual complaints, patient reportsno sexual complaintsandno pain during intercourse. For menopausal symptoms, patient reportsno menopausal symptoms.Psychological symptomsFor psychological symptoms, patient reportsno depressionandno anxiety.Preventative measuresFor preventive measures, patient reportsencourage self breast examinationandencourage regular exercise. Topher Gonzalez MD [address], [place], [address], [facility] 03/29/2022 13:07:13 OBGyn Episode Ob Episode Information Episode Created Date Number of Fetuses Patient Bloodtype Patient rh Status Prepregnancy Weight lbs Domestic Partner Domestic Partner Phone Father Name Cumulative Effects Analyst Status 10/15/19 20 1 CLOSED Fetus Data First Name Last Name Admitted to NICU Weight (g) Sex Living Outcome Pediatric Complications Fetus ID Race Codes Race Delivery Type 3146.56 [phone] Repeat Isai Calculation Initial Isai Date Initial Exam Date Initial Exam Provider Initial Ultrasound Date Last Menstrual Period Date Ultra Sound Weeks Gestation 0 Eighteen To Twenty Week Isai Update Ultra Sound Date Fundal Height At Umbil Quickening Date Ultra Sound Latest Weeks Gestation Final Isai Confirmed By Final Isai Confirmed Date Final Isai Date Ultra Sound Latest Days Gestation 0 0 Menstrual History Last Menstrual Date Menses Monthly On Bcp Conception Prior Menses Frequency Hcg Plus Date Menarche Onset Age Delivery Information Delivery Date Delivery Type Labor Anesthesia Weeks Gestation Incision Type Labor Labor Length Hrs Delivered By Post Complications Tubal Sterilization Discharge Date Comments 7 Naeem Discharge Information Feeding Method Contraceptive Method Maternal HG B and HCT Levels Ob Episode Information Episode Created Date Number of Fetuses Patient Bloodtype Patient rh Status Prepregnancy Weight lbs Domestic Partner Domestic Partner Phone Father Name Cumulative Effects Analyst Status 10/17/19 20 1 CLOSED Fetus Data First Name Last Name Admitted to NICU Weight (g) Sex Living Outcome Pediatric Complications Fetus ID Race Codes Race Delivery Type , Spontane ous [id number] Isai Calculation Initial Isai Date Initial Exam Date Initial Exam Provider Initial Ultrasound Date Last Menstrual Period Date Ultra Sound Weeks Gestation 0 Eighteen To Twenty Week Isai Update Ultra Sound Date Fundal Height At Umbil Quickening Date Ultra Sound Latest Weeks Gestation Final Isai Confirmed By Final Isai Confirmed Date Final Isai Date Ultra Sound Latest Days Gestation 0 0 Menstrual History Last Menstrual Date Menses Monthly On Bcp Conception Prior Menses Frequency Hcg Plus Date Menarche Onset Age Delivery Information Delivery Date Delivery Type Labor Anesthesia Weeks Gestation Incision Type Labor Labor Length Hrs Delivered By Post Complications Tubal Sterilization Discharge Date Comments 3 Discharge Information Feeding Method Contraceptive Method Maternal HG B and HCT Levels Ob Episode Information Episode Created Date Number of Fetuses Patient Bloodtype Patient rh Status Prepregnancy Weight lbs Domestic Partner Domestic Partner Phone Father Name Cumulative Effects Analyst Status 10/15/19 1 CLOSED Fetus Data First Name Last Name Admitted to NICU Weight (g) Sex Living Outcome Pediatric Complications Fetus ID Race Codes Race Delivery Type 2976.47 [phone] Vaginal Delivery Isai Calculation Initial Isai Date Initial Exam Date Initial Exam Provider Initial Ultrasound Date Last Menstrual Period Date Ultra Sound Weeks Gestation 0 Eighteen To Twenty Week Isai Update Ultra Sound Date Fundal Height At Umbil Quickening Date Ultra Sound Latest Weeks Gestation Final Isai Confirmed By Final Isai Confirmed Date Final Isai Date Ultra Sound Latest Days Gestation 0 0 Menstrual History Last Menstrual Date Menses Monthly On Bcp Conception Prior Menses Frequency Hcg Plus Date Menarche Onset Age Delivery Information Delivery Date Delivery Type Labor Anesthesia Weeks Gestation Incision Type Labor Labor Length Hrs Delivered By Post Complications Tubal Sterilization Discharge Date Comments 2 Ariyanna Discharge Information Feeding Method Contraceptive Method Maternal HG B and HCT Levels Ob Episode Information Episode Created Date Number of Fetuses Patient Bloodtype Patient rh Status Prepregnancy Weight lbs Domestic Partner Domestic Partner Phone Father Name Cumulative Effects Analyst Status 10/15/19 20 1 CLOSED Fetus Data First Name Last Name Admitted to NICU Weight (g) Sex Living Outcome Pediatric Complications Fetus ID Race Codes Race Delivery Type 3033.16 [phone] Primary Isai Calculation Initial Isai Date Initial Exam Date Initial Exam Provider Initial Ultrasound Date Last Menstrual Period Date Ultra Sound Weeks Gestation 0 Eighteen To Twenty Week Isai Update Ultra Sound Date Fundal Height At Umbil Quickening Date Ultra Sound Latest Weeks Gestation Final Isai Confirmed By Final Isai Confirmed Date Final Iasi Date Ultra Sound Latest Days Gestation 0 0 Menstrual History Last Menstrual Date Menses Monthly On Bcp Conception Prior Menses Frequency Hcg Plus Date Menarche Onset Age Delivery Information Delivery Date Delivery Type Labor Anesthesia Weeks Gestation Incision Type Labor Labor Length Hrs Delivered By Post Complications Tubal Sterilization Discharge Date Comments 4 Gigi Discharge Information Feeding Method Contraceptive Method Maternal HG B and HCT Levels
--- OUTSIDE RECORDS SUMMARY | 2025-02-01 11:12 | XMS_ITS | Continuity of Care Document ---
Author Organization [facility] [place] Address [address] [place] [address] [place] [address] Care Team Providers Care Transit Mixer Driver Name Role Phone OSMIN BRANCH Primary Care Provider Assessment No assessment recorded. Plan of Treatment Reminders Order Date Submit Date Provider Last Modified By Organization Details Last Modified Time Details Appointments None record ed. Lab None record ed. Referral None record ed. Procedures None record ed. Surgeries None record ed. Imaging None record ed. Medication Orders None record ed. Patient TargetsNo targets recorded. Patient InstructionsNo instructions recorded. Reason for Referral None Reported. Procedures Surgical History Date Name Laterality Status Provider Name and Address Organization Details Recorded Time 03/24/19 21 I&D completed Topher Gonzalez MD [address], [place], [address], [facility] 03/24/2020 10:30:46 11/20/19 20 TOTAL LAPAROSCOPIC HYSTERECTOMY (SURG) completed Elvin Taylor [facility] 07/31/2020 11:36:12 10/15/19 20 Date of Last Pap Smear completed Emiliana Zambrano [facility] 10/17/2020 09:37:55 Imaging Results None recorded. Procedure Notes None recorded. Medical Equipment None Reported. Allergies Allergen ID Allergen Name Allergen Category Reaction Reaction Severity Criticality Documentation Date Start Date Code Code System Note Provider Name and Address Organization Details Recorded Time 1547 POLLEN EXTRACTS environme nt,medica tion Not available Not available Not available 10/15/2019 84298 6 RxNorm [facility] 10:40:15 1548 house dust allergeni c extract environme nt,medica tion Not available Not available Not available 10/15/2019 69515 9 RxNorm [facility] 10:40:19 80066 ibuprofen medicatio n Not available Not available Not available 03/29/2022 5640 RxNorm Emiliana mendoza, [facility] 3 12:35:31 Medications Name Sig Start [...] Available Not Available No t Available Vitals None Recorded Social History Question Answer Notes LastModified by Organizat ion Details LastModified Time Tobacco Smoking Status Never Smoker Emiliana Kenya null, [place] - [facility] 03/29/2022 12:34:40 How Many Years Have [...] Or The Highest Degree You Have Received? [id number] Information not available 03/29/2022 Are There Any [...] anxious, or unable to sleep at night)? [id number] Information not available 03/29/2022 Family History Relationship Description Onset Age of this Age Resolved Age Notes LastModified by Organization Details LastModified Time Mother Hyperlipidem ia [email or web address] Not available 2024 09:43:11 Mother Hypertensive disorder Not available 2019 11:25:43 Father Hyperlipidem ia [email or web address] Not available 2024 09:43:11 Father Hypertensive disorder [...] ICD10 Code Diagnosis IMO Codes Diagnosis Note [id number] Alicja CashlilibethELTON [place] [address] [address] 11/26/2024 09:42:41 11/27/2024 16:41:27 Left before being seen [id number] 105 Z53.21 [id number] Health Concerns Section Related Observation LastModified by Organization Detai ls LastModified Time None Recorded Concern Status LastModified by Organization Details LastModified Time None Recorded Payers Encounter Date Sequence Insurance Name Policy Number Policy Schmidt Covered Member ID Schmidt Member ID Guarantor Name 11/26/2024 1 [facility] (MEDICAID HMO) [id number] Hoa Drake [id number] Hoa Drake OBGyn Episode No OBEpisode recorded.
--- OUTSIDE RECORDS SUMMARY | 2025-02-01 11:12 | XMS_ITS | Clinical Summary ---
Author Organization [facility] Address [address] [place] [address] Care Team Providers Care Sheet Rock Layer Name Role Phone Steven Kennedy MD Primary Care Provider Devin Hamilton MD Unavailable [phone] Allergies Active Allergy Reactions Criticality Noted Date Comments Nsaids (Non-Steroidal Anti-Inflammatory Drug) Other (See comments) Low 01/19/2023 Hypertension Medications fluticasone (FLONASE) 50 mcg/actuation nasal spray Two sprays in each nostil one time per day 1 1 9 Active brexpiprazole (REXULTI) 2 mg tablet Take by mouth 0 Active metFORMIN (GLUCOPHAGE) 500 mg tablet Take by mouth 0 Active ferrous sulfate 325 mg (65 mg of elemental iron) tablet Take by mouth 0 Active topiramate (TOPAMAX) 100 mg tablet Take by mouth daily 0 Active albuterol HFA (PROVENTIL HFA,VENTOLIN HFA,PROAIR HFA) 90 mcg/actuation inhaler INHALE 1 PUFF BY MOUTH EVERY 4 TO 6 HOURS NEEDED FOR SHORTNESS OF BREATH OR WHEEZING Active budesonide-form oteroL (SYMBICORT) 160-4.5 mcg/actuation inhaler INL 2 PFS PO Q 12 H 0 Active docusate sodium (COLACE) 100 mg capsule Take 1 capsule (100 mg total) by mouth 2 (two) times a day as needed 6 Active hydrALAZINE (APRESOLINE) 100 mg tablet Take 1 tablet (100 mg total) by mouth 3 (three) times a day 3 Active ergocalciferol (VITAMIN D) 50,000 unit capsule TAKE 1 CAPSULE BY MOUTH WEEKLY 0 Active montelukast (SINGULAIR) 10 mg tablet Take 1 tablet (10 mg total) by mouth daily Active sertraline (ZOLOFT) 50 mg tablet Take 1 tablet (50 mg total) by mouth daily 1 Active sertraline (ZOLOFT) 100 mg tablet sertraline 100 mg tablet 0 Active traZODone (DESYREL) 100 mg tablet Take 1 tablet (100 mg total) by mouth nightly as needed Active citalopram (CeleXA) 20 mg tablet Take 1 tablet (20 mg total) by mouth daily 5 Active senna-docusate (PERICOLACE) 8.6-50 mgIndications:c onstipation Take 2 tablets by mouth 2 (two) times a day 60 tablet 2 3 Active HYDROcodone-sheila taminophen (NORCO) 5-325 mg per tabletIndicatio ns:Pain Take 1 tablet by mouth every 6 (six) hours as needed for pain rx# [id number] Active aspirin 325 mg tablet Take 1 tablet (325 mg total) by mouth 2 (two) times a day 30 tablet 3 Active spironolactone (ALDACTONE) 50 mg tablet Take 1 tablet (50 mg total) by mouth daily 4 Active losartan (COZAAR) 100 mg tablet Take 1 tablet (100 mg total) by mouth daily 4 Active cloNIDine (CATAPRES) 0.1 mg tablet TAKE 1 TABLET BY MOUTH EVERY DAY NEEDED FOR HIGH BLOOD PRESSURE 4 Active chlorthalidone (HYGROTON) 25 mg tablet Take 1 tablet (25 mg total) by mouth daily 4 Active naloxone (NARCAN) 4 mg/actuation spray,non-aeros ol Administer 1 spray into affected nostril(s) as needed for opioid reversal or respiratory depression Call 911. Administer a single spray in one nostril. Repeat every 3 minutes as needed if no or minimal response. 2 each 2 4 Active atorvastatin (LIPITOR) 40 mg tablet Take 1 tablet (40 mg total) by mouth daily Active carvediloL (COREG) 25 mg tablet Take by mouth 0 Active lidocaine (LIDODERM) 5 % APPLY NEW PATCH TO SKIN DAILY NEEDED FOR BACK PAIN 4 Active methocarbamoL (ROBAXIN) 750 mg tablet TAKE 1 TABLET BY MOUTH EVERY 8 HOURS NEEDED FOR MUSCLE SPASM Active NIFEdipine CC 60 mg 24 hr tablet Active NIFEdipine (NIFEdipine XL) 60 mg 24 hr tablet Take 1 tablet (60 mg total) by mouth daily Active NIFEdipine (NIFEdipine XL) 90 mg 24 hr tablet Take 1 tablet (90 mg total) by mouth daily 3 Active oxyCODONE-aceta minophen (PERCOCET) 5-325 mg per tabletIndicatio ns:Pain Take 1 tablet by mouth every 6 (six) hours as needed for pain 28 tablet 4 Active Active Problems Problem Noted Date Diagnosed Date S/P total knee arthroplasty, right 02/04/2023 Unilateral primary osteoarthritis, right knee Loose body of right knee 12/01/2022 Primary osteoarthritis of right knee 12/01/2022 Chronic instability of right knee 12/01/2022 Snoring 07/06/2022 Palpitations 05/18/2022 Type 2 diabetes mellitus without complications 0 05/18/2022 Asthma 02/06/2020 Iron deficiency anemia 02/04/2020 Diastolic dysfunction 10/24/2019 Vitamin D deficiency 09/22/2019 Abnormal glucose level 09/21/2019 Iron deficiency 09/21/2019 Overview (12/01/2022): nml b`12 and folate Cigarette nicotine dependence, uncomplicated Tobacco use 04/04/2018 Anxiety 07/23/2014 Overview (06/17/2016): Anxiety Shoulder pain 07/23/2014 Overview (06/17/2016): Shoulder pain Depression 07/23/2014 Overview (06/17/2016): Depression 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 Overview (06/17/2016): Multiple personality disorder Benign hypertension 06/20/2008 Overview (06/16/2016): BENIGN HYPERTENSION Morbid obesity 05/29/2008 Overview (06/17/2016): MORBID OBESITY Surgical History Surgery Date Site/Laterality Comments OTHER SURGICAL HISTORY : x 2 OTHER SURGICAL HISTORY : Bilateral tubal ligation OTHER SURGICAL HISTORY hpv: Cervical Ablation HYSTERECTOMY EYE SURGERY TUBAL LIGATION KNEE ARTHROSCOPY 02/02/2023 Right arthroplasty right total knee Medical History Medical History Date Comments Hx Other Medical 2003 Hx Other Medical 2006 Hx Other Medical 2005 hpv Hx Other Medical tubal ligation in the past.; Comments: JESSIE 07/23/2014 - Hx Other Medical Right acromiocl avicular decompression/ant. acromio; Comments: JESSIE 08/19/2014 - Abnormal Pap smear of cervix 07/2014 NIL M, HR HPV (+). Colposcopy - benign ECC Hypertension Asthma COPD (chronic obstructive pu lmonary disease) Family History Medical History Relation Name Comments Seizures Cousin 2 Seizure disorde r; Cause of : Seizure disorder Diabetes Father's Sister 3 Diabetes m ellitus; Hypertension Father's Sister 4 Hypertensi on; Diabetes Mother Diabetes mellit us; Hypertension Mother Hypertension; Other Other Family history of anxiety, depression, hypertension, arthritis.; Diabetes Paternal Grandfather Diabete s mellitus; Diabetes Paternal Grandmother Diabete s mellitus; Hypertension Paternal Grandmother Hyperte nsion; Stroke Paternal Grandmother Stroke; Hypertension Sister 2 Hypertension; Seizures Son Seizure disorde r; Relation Name Status Comments Cousin 1 (Age 28) Cousin 2 Father's Sister 1 Alive Father's Sister 2 Alive Father's Sister 3 Father's Sister 4 Mother Alive Other Paternal Grandfather Alive Paternal Grandmother Alive Sister 1 Alive Sister 2 Son Social History Tobacco Use Types Packs/Day Years Used Date Smoking Tobacco: Former Cigarettes 1 30.9 S tarted: 1994 Smokeless Tobacco: Never Tobacco Cessation:Counseling Given: Not Answered Alcohol Use Standard Drinks/Week Comments Yes 0 (1 standard drink = 0.6 oz pur e alcohol) OCC OASIS D0700: Social Isolation Answer Da te Recorded Frequency of experiencing loneliness or isolatio n Never 02/22/2023 OASIS A1250: Transportation Answer Date Recorded Lack of Transportation (Medical) No 02/22/2023 Lack of Transportation (Non-Medical) No 02/22/2023 Patient Unable or Declines to Respond No 02/22/2023 OASIS B1300: Health Literacy Answer Estrada e Recorded Frequency of needing help to read materials from doctor or pharmacy Never 02/22/2023 AUDIT-C Answer Date Recorded Q1: How often do you have a drink containing alcohol? Never 02/02/2023 Q2: How many drinks containi ng alcohol do you have on a typical day when you are drinking? Patient does not drink Q3: How often do you have si x or more drinks on one occasion? Never 02/02/2023 Personal Safety Answer Date Recorded Have you ever been in or are you currently in a harmful physical or emotional relationship or is someone making you feel afraid or unsafe? Denies 02/02/2023 Comments No Sex and Gender Information Value Date Recorded Sex Assigned at Not on file Legal Sex Female 12:51 AM FIELD SERVICE COORDINATOR Gender Identity Not on file Sexual Orientation Not on file Obstetrics History Para Term AB IAB SAB Ectopic Multiple Livin g Live Births 4 3 3 1 1 3 3 Date Outcome GA Total Labor Labor/2nd/3rd Weight Sex Type Anes PTL Nata A1 A5 Name Clin Term Term Term SAB Last Filed Vital Signs Vital Sign Reading Time Taken Comments Blood Pressure 160/97 02/22/2023 11:14 AM FIELD SERVICE COORDINATOR Pulse 80 02/22/2023 11:14 AM FIELD SERVICE COORDINATOR Temperature 36.5 C (97.7 F) 02/22/2023 11:14 AM FIELD SERVICE COORDINATOR Respiratory Rate 18 02/22/2023 11:14 AM FIELD SERVICE COORDINATOR Oxygen Saturation 98% 02/22/2023 11:14 AM FIELD SERVICE COORDINATOR Inhaled Oxygen Concentration - - Weight 108.9 kg (240 lb) 05/17/2023 8:24 AM FIELD SERVICE COORDINATOR Height 165.1 cm (5' 5) 08/16/2023 9:17 AM CDT Body Mass Index 39.94 05/17/2023 8:24 AM FIELD SERVICE COORDINATOR Plan of Treatment Health Maintenance Due Date Last Done Comments Albumin Creatinine Ratio, Urine 1981 Breast Cancer Screening-Mammogram 1981 Depression Screening 1981 Hemoglobin A1C 1981 Hepatitis C Screening 1981 Dilated Eye Exam 1981 Foot Exam 1981 DTaP/Tdap/Td Vaccine (1 - Tdap) 1992 Varicella Vaccines (1 of 2 - 13+ 2-dose series) 1994 Hepatitis B Screening 09/26/1999 Regular Well Visit/Exam 18-64 09/26/1999 Pneumococcal vaccine <65 (1 of 2 - PCV) 2000 HPV Vaccines (1 - 3-dose SCD M series) 2008 Lipid Panel 06/25/2022 06/25/2021 eGFR 02/04/2024 02/03/2023, 10/2022, 06/25/2021, Additional history exists Influenza Vaccine (#1) 2024 12/13/2018, 2016 Medical Devices Implanted Type Area Inspectors And Regulatory Officers Device Identifier Shelf Expiration Date Model / Serial / Lot Notice [employer] [place] R+G High Viscosity Cement Bone Gentamicin Arthroplasty [id number] - [id number] Implanted:Qty: 1 on 02/02/2023 by Devin Hamilton MD at [facility] Right: Knee [employer] [id number] 02/10/2026 [id number] / / [id number] [employer] Baseplate Tibial Knee Cemented Right Fixed Stemmed Persona Size D Tivanium [id number] - [id number] Implanted:Qty: 1 on 02/02/2023 by Devin Hamilton MD at [facility] Right: Knee [employer] [id number] 12/19/2032 [id number] / / [id number] [employer] Persona 14mm 30+ Mm Knee Tibia Taper Extension Stem [id number] - [id number] Implanted:Qty: 1 on 02/02/2023 by Devin Hamilton MD at [facility] Right: Knee [employer] [id number] 12/14/2032 [id number] / / [id number] [employer] Component Femoral Knee Porous Cruciate Retaining Narrow Right Persona Trabecular Metal Size 8 Burson Chromium [id number] - [id number] Implanted:Qty: 1 on 02/02/2023 by Devin Hamilton MD at [facility] Right: Knee [employer] [id number] / / [employer] Persona 32mm Knee Component Patellar All Poly Latex Free [id number] - [id number] Implanted:Qty: 1 on 02/02/2023 by Devin Hamilton MD at [facility] Right: Knee [employer] [id number] / / [employer] Persona 10mm Knee Right 8-9 C-D Insert Articular Vivacit-E [id number] - [id number] Implanted:Qty: 1 on 02/02/2023 by Devin Hamilton MD at [facility] Right: Knee [employer] [id number] 12/31/2026 [id number] / / [id number] Procedures Procedure Name Priority Date/Time Associated Diagnosis Comments EGFR Routine 02/03/2023 4:59 AM FIELD SERVICE COORDINATOR LIPID PANEL Routine 06/25/2021 10:15 AM CDT Chest pain, unspecified type Localized edema Essential hypertension from Last 3 Months or Most Recently Relevant to Health Maintenance Results * eGFR (02/03/2023 4:59 AM FIELD SERVICE COORDINATOR) eGFR 91 mL/min/1. 73 m2 [facility] Comment: Interpretive Data Reference Interval Normal >/= 90 mL/min/1.73m2 Mildly decreased* 60 - 89 mL/min/1.73m2 Mildly to moderately decreased 45 - 59 mL/min/1.73m2 Moderately to severely decreased 30 - 44 mL/min/1.73m2 Severely decreased 15 - 29 mL/min/1.73m2 Kidney Failure < 15 mL/min/1.73m2 *Relative to young adult level Estimated glomerular filtration rate is determined by the 2020 CKD-EPI equation recommended by the National Kidney Foundation (A Unifying Approach to GFR Estimation: Recommendations of the NKF-ASK Task Force on Reassessing the Inclusion of Race in Diagnosing Kidney Disease, JASN 2020). The CKD-EPI equation should not be used for patients with unstable renal function and has not been validated in children and those over 70. Current interpretive data was last reviewed 2021. Blood 02/03/2023 4:59 AM FIELD SERVICE COORDINATOR 02/03/2023 5:28 AM FIELD SERVICE COORDINATOR us Devin Hamilton MD LAB BLOOD ORDERABLES Chloe l Result OBED [id number] Department [place] [address] * (ABNORMAL) Lipid panel (06/25/2021 10:15 AM CDT) Triglycerides 84 <150 mg/dL [facility] Comment: Desirable: <150 mg/dL, fasting <175 mg/dL, non-fasting Persistently elevated triglycerides may enhance atherosclerotic cardiovascular disease. Total Cholesterol 230(H) <200 mg/dL [facility] Total HDL-C Direct 59 >50 mg/dL [facility] Non-HDL cholesterol 171 100 - 219 mg/dL [facility] [place] LDL Chol 154 70 - 189 mg/dL [facility] Blood specimen (specimen) 06/25/2021 10:15 AM CDT 06/25/2021 12:00 PM CDT Narrative [facility] - 06/25/2021 1:25 PM CDT Current interpretive data was last updated February 13, 2021. Omer Cooney MD LAB BLOOD ORDERABLES Final Re sult [facility] from Last 3 Months or Most Recently Relevant to Health Maintenance Insurance [facility] Advance Directives For more information, please contact: [phone] * Full Code (Latest Code Status on File) Date Activated Date Inactivated Comments 02/02/2023 1:40 PM 02/04/2023 11:53 PM Care Teams Sheet Rock Layer Relationship Specialty Start Date End Date Steven Kennedy MD [address] [place] [address] [address] [place] [address] PCP - General Family Medicine 11/11/22 Deivn Hamilton MD [address] [place] [address] [address] [place] [address] Surgeon Orthopedic Surgery 02/02/23
[2025-02-01 11:31] LABS: Influenza A QL RT-PCR Negative (Negative); Influenza B QL RT-PCR Negative (Negative); RSV RNA, RT-PCR Negative (Negative); SARS-CoV-2 RNA PCR Negative (Negative)
[2025-02-01 12:44] VITALS: BP 125/80; PULSE 88; RESP 20; O2SAT 99
[2025-02-01] MEDS: METOCLOPRAMIDE HCL INJ 10 MG/2 ML VIAL IV PUSH (13:00)
[2025-02-01 14:33] VITALS: BP 143/98; PULSE 84; RESP 20; TEMP 36.6; O2SAT 99
== END 2025-02-01 14:36 | disposition home or self-care (01) ==
PROVIDERS: Emergency Provider Registered Nurse; PCP Internal Medicine
DX: R42 Dizziness and giddiness (principal); R51.9 Headache, unspecified; T50.905A Adverse effect of unspecified drugs, medicaments and biological substances, initial encounter; E23.6 Other disorders of pituitary gland; Z20.822 Contact with and (suspected) exposure to COVID-19
CPT/HCPCS: 36415; 70450; 80053; 81001; 85025; 85055; 87637; 93005; 96361; 96374; 96375; 99284; J1200; J2765; J7030